=== PATIENT | male | born 1940 | race American Indian/Alaskan Native ===

== ENCOUNTER 2018-07-30 11:39 | Day surgery (SDC) | payer MEDICARE ==
[2016-10-22 11:53] VITALS: BMI 24.5
[2018-07-30 12:48] VITALS: O2SAT 100
[2018-07-30] MEDS ORDERED: Midazolam 2 MG/2 ML VIAL ONE (13:04)
[2018-07-30] MEDS ORDERED: Propofol 10 mg/ml Inj (20 ML) ONE (13:04)
[2018-07-30] MEDS ORDERED: Sodium Chloride 0.9% 1,000 ML IV SCH (15:00)
[2018-07-30 15:23] VITALS: RESP 18
[2018-07-30 15:52] VITALS: BP 135/51; PULSE 71; TEMP 97.9
== END 2018-07-30 16:30 | disposition home or self-care (01) ==
LOC: ENDO 11:39
PROVIDERS: ATTEND Internal Medicine Gastroenterology
DX: K51.90 Ulcerative colitis, unspecified, without complications (principal); D12.3 Benign neoplasm of transverse colon; D12.5 Benign neoplasm of sigmoid colon; K57.30 Diverticulosis of large intestine without perforation or abscess without bleeding; K64.1 Second degree hemorrhoids; E11.22 Type 2 diabetes mellitus with diabetic chronic kidney disease; N18.9 Chronic kidney disease, unspecified; I12.9 Hypertensive chronic kidney disease with stage 1 through stage 4 chronic kidney disease, or unspecified chronic kidney disease
CPT/HCPCS: 45380; 82948; 88305; J2001; J2250; J2704; J7030; J7040

== ENCOUNTER 2018-09-06 13:08 | Outpatient (CLI) | payer MEDICARE | END 2018-09-06 13:09 | disposition home or self-care (01) | LOC: LAB 13:08 ==